=== PATIENT | male | born 1995 | race Two or more races ===

== ENCOUNTER 2020-10-04 11:52 | Emergency (ER) | payer MEDICAID, OTHER ==
[~2020-10-04] VITALS: Ht 172.7 cm; Wt 103.3 kg
[2020-10-04] MEDS ORDERED: DEXAMETHASONE 4 MG/ML, 1ML PO ONE (13:00)
[2020-10-04] MEDS ORDERED: DEXAMETHASONE 4 MG/ML, 5ML ONE (13:01)
--- NOTE | 2020-10-04 13:05 | NUR ---
MEDS ADMIN PER MAY.
[2020-10-04 13:53] VITALS: BP 130/93
== END 2020-10-04 14:24 | disposition home or self-care (01) ==
LOC: ED 13:58
DX: B34.9 Viral infection, unspecified (principal); Z20.822 Contact with and (suspected) exposure to COVID-19; F17.210 Nicotine dependence, cigarettes, uncomplicated
CPT/HCPCS: 71045; 99284; 99406; J1100; U0003; U0005